=== PATIENT | female | born 2000 | race Caucasian/White ===

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

== ENCOUNTER 2019-04-11 19:28 | Emergency (ER) | payer BC ==
[~2019-04-11] VITALS: Ht 185.4 cm; Wt 124.7 kg
[~2019-04-11 19:28] MED LIST: DOXYCYCLINE 10100 MG PO; PREDNISONE50 MG PO; QVAR REDIHALE10.6 G1; VENTOLIN HFA 1818 GM INH
[2019-04-11 19:32] VITALS: BP 137/62
== END 2019-04-11 20:12 | disposition home or self-care (01) ==
LOC: M.ERS 19:28
DX: T19.2XXA Foreign body in vulva and vagina, initial encounter (principal); J45.909 Unspecified asthma, uncomplicated; Z88.1 Allergy status to other antibiotic agents; X58.XXXA Exposure to other specified factors, initial encounter; Y92.89 Other specified places as the place of occurrence of the external cause; Y93.89 Activity, other specified; Y99.8 Other external cause status